=== PATIENT | female | born 1995 ===

== ENCOUNTER 2020-12-12 09:24 | Inpatient (IN) | payer OTHER ==
[~2020-12-12] VITALS: Ht 157.5 cm; Wt 88.5 kg
--- NOTE | 2020-12-13 18:24 | PR ---
[facility] [address] [facility] [place] [address] Signed PP Progress Notes Datetime Report Generated by CPN: 12/13/2020 18:24 SUBJECTIVE: [id number] Pain: Within Normal Limits Nausea/Vomiting: Denies Flatus: Yes Bowel Movement: No Vital Signs: [id number] Vital Signs: Reviewed; Within Normal Limits Cardiovascular: Normal Respiratory: Normal Abdomen/Uterus: Normal Lochia: Normal Vulva/Perineum: Not Done Breasts: Not Done CVA Tenderness: Normal Extremities: Normal Incision: Not Applicable Progress: Normal Exam Comments: Fundus firm U-2 nontender IMPRESSION/PLAN/PROCEDURES: [id number] Impression: Normal Progression Plan: Continue Present Management Progress Notes: Doing well. No concerns. Anticipate d/c home tomorrow. Signing Physician: Shabana Davis DO Copies: ~ *Electronically Signed* 12/13/20 1824 SHABANA DAVIS DO PATIENT NAME: MONI NINO PROGRESS NOTE DATE OF : [birth year] PHYSICIAN: SHABANA DAVIS DO RPT #: [id number] REPORT IS CONFIDENTIAL AND NOT TO BE RELEASED WITHOUT AUTHORIZATION
--- NOTE | 2020-12-14 07:12 | PR ---
[facility] [address] [facility] [place], [place] [address] Signed PP Progress Notes Datetime Report Generated by CPN: 12/14/2020 07:12 SUBJECTIVE: [id number] Pain: Within Normal Limits Nausea/Vomiting: Denies Flatus: Yes Bowel Movement: Yes Vital Signs: [id number] Vital Signs: Reviewed; Within Normal Limits Cardiovascular: Normal Respiratory: Normal Abdomen/Uterus: Normal Lochia: Normal Vulva/Perineum: Not Done Breasts: Not Done CVA Tenderness: Normal Extremities: Normal Incision: Not Applicable Progress: Normal Exam Comments: Fundus firm U-2 nontender. Baby IMPRESSION/PLAN/PROCEDURES: [id number] Impression: Normal Progression Plan: Discharge Progress Notes: Pt seen and examined. Doing well. Ambulating, voiding, and tolerating full diet. Pain and lochia minimal. well. No fevers/chills/other concerns. Desires d/c home today. Reviewed d/c instructions in detail. Unsure of plans for pp contraception. No questions or concerns. Hgb 12.5 Signing Physician: Shabana Davis DO Copies: ~ *Electronically Signed* 12/14/20711 SHABANA DAVIS DO PATIENT NAME: MONI NINO PROGRESS NOTE DATE OF : [birth year] PHYSICIAN: SHABANA DAVIS DO RPT #: [id number] REPORT IS CONFIDENTIAL AND NOT TO BE RELEASED WITHOUT AUTHORIZATION
--- NOTE | 2020-12-18 14:55 | PATH ---
[facility] [address] [place], [place] [address] Signed SPECIMEN(S): A PLACENTA SPECIMEN SOURCE: A. PLACENTA CLINICAL HISTORY: Mother's age: 23. OB history: G2, P1, A0. Gestational age: 38. score: 7/9. Rh negative. GBS negative. Specific issues of concern: History of COVID positive in June; negative at time of delivery. FINAL PATHOLOGIC DIAGNOSIS: Placenta, third trimester: - Cabral placenta, appropriate weight for stated gestational age of 38 weeks. - Umbilical cord: Three-vessel umbilical cord with no histopathologic abnormality. - membranes: Pigmented macrophages. - Placental disc: Chorionic villi with mature villous morphology. NAL:cml:C2NR MICROSCOPIC EXAMINATION: Histologic sections of all submitted blocks are examined by light microscopy. These findings, together with the gross examination, support the pathologic diagnosis. GROSS DESCRIPTION: The specimen, labeled "Allyson Hopkins," is received fresh and placed in formalin and consists of a cabral discoid placenta with the following parameters: Umbilical cord: Insertion paracentric, measurement 40.5 x 1.4 cm; trivascular. Cord coiling index (per 10 cm): Two, pale. Lesions: Not grossly identified. Membranes: Insertion site: Marginal, pink with areas of opacification, rupture site grossly unremarkable. Intact. Other: Not grossly identified. Chorionic Plate: Normal radiating vascular pattern, blue-purple and shiny. Lesions: Not grossly identified. Other: Not grossly identified. Maternal Surface: Normal cotyledons, intact. Lesions: Not grossly identified. Measurement: 22.4 x 19.2 x 2.6 cm. Weight (trimmed): 501 g Cut Surface: Maroon and spongy. Lesions: Focal areas of calcification. Basal plate fibrin 0.1 cm in thickness. Other Findings: Not grossly identified. PATIENT NAME: MONI HOPKINS PATHOLOGY DATE OF : [birth year] REPORT #: [id number] PHYSICIAN: ROSANA PATHOLOGY PCP: NO PRIMARY CARE PHYSICIAN REPORT IS CONFIDENTIAL AND NOT TO BE RELEASED WITHOUT AUTHORIZATION [facility] [address] [place], [place] [address] Signed Cassette Summary: (A1) membranes and umbilical cord (A2) areas of calcification (A3) placenta parenchyma (A4) placenta parenchyma. FB (under the direct supervision of a pathologist) The Gross Description was prepared using a voice recognition system. The report was reviewed for accuracy; however, sound-alike word errors, addition and/or deletions may occur. If there is any question about this report, please contact Client Services. PERFORMING LABORATORY: The technical component was performed by [facility] [address] (Operations Technician: Madelyn Hernandez MD; CLIA# [id number]). [facility] [address] [address] (CLIA# [id number]). Diagnostician: Jane Henriquez MD Pathologist Electronically Signed 12/18/2020 Copies: ~ PATIENT NAME: RUSH BECKERMONI PATHOLOGY DATE OF : [birth year] REPORT #: [id number] PHYSICIAN: ROSANA PATHOLOGY PCP: NO PRIMARY CARE PHYSICIAN REPORT IS CONFIDENTIAL AND NOT TO BE RELEASED WITHOUT AUTHORIZATION
== END 2020-12-14 11:30 | disposition home or self-care (01) | DRG 806 ==
LOC: FBCO 09:24 → FBC 09:41 → FBCO 02-28 10:05
PROVIDERS: ADMIT Obstetrics & Gynecology; ATTEND Obstetrics & Gynecology
PROC: 10E0XZZ Delivery of Products of Conception, External Approach (ICD-10-PCS; principal; 2020-12-12)
PROC: 10907ZC Drainage of Amniotic Fluid, Therapeutic from Products of Conception, Via Natural or Artificial Opening (ICD-10-PCS; 2020-12-12)
PROC: 3E0234Z Introduction of Serum, Toxoid and Vaccine into Muscle, Percutaneous Approach (ICD-10-PCS; 2020-12-13)
DX: O26.893 Other specified pregnancy related conditions, third trimester (principal); O99.354 Diseases of the nervous system complicating childbirth; Z37.0 Single live birth; G43.909 Migraine, unspecified, not intractable, without status migrainosus; Z67.21 Type B blood, Rh negative; Z3A.38 38 weeks gestation of pregnancy; Z86.16 Personal history of COVID-19; O9A.22 Injury, poisoning and certain other consequences of external causes complicating childbirth; S82.202D Unspecified fracture of shaft of left tibia, subsequent encounter for closed fracture with routine healing; S82.402D Unspecified fracture of shaft of left fibula, subsequent encounter for closed fracture with routine healing
CPT/HCPCS: 36415; 83030; 85027; 86850; 86870; 86900; 86901; 88307; A9270; C9803; J2590; J2790; J7121; U0003

== ENCOUNTER 2022-01-12 09:10 | Inpatient (IN) | payer OTHER ==
--- NOTE | 2022-01-12 10:23 | PR ---
[facility] [address] [facility] [place], [place] [address] Signed Progress Notes IP Datetime Report Generated by CPN: 01/12/2022 10:22 PROGRESS NOTES: [id number] Impression: Normal Progression of Labor Procedures: Sterile Vag Exam Plan: Continue Present Management; Antibiotic Therapy Informed Consent Obtain: Vaginal Delivery VITAL SIGNS: [id number] Vital Signs: Reviewed; Within Normal Limits EXAM: [id number] Dilatation: 6.0 Effacement: 90 Station: 0 Contractions: q 2-4 min MEMBRANES: [id number] Membranes Status: Bulging Comments: Pt seen and examined. Doing well but uncomfortable w/ contractions. Reviewed anticipated course of labor and delivery. All questions answered. Anticipate FETUS A: [id number] FHR Baseline: 140 Variability: Moderate 6-25bpm Accelerations: 15X15 Decelerations: Variable FHR Category: Category II Presentation: Vertex Comments on Fetus A: No evidence of metabolic acidosis FETUS B: [id number] Signing Physician: Shabana Davis DO Copies: ~ *Electronically Signed* 01/12/22 1022 SHABANA DAVIS DO PATIENT NAME: MONI NINO PROGRESS NOTE DATE OF : 97 PHYSICIAN: SHABANA DAVIS DO RPT #: [id number] REPORT IS CONFIDENTIAL AND NOT TO BE RELEASED WITHOUT AUTHORIZATION
--- NOTE | 2022-01-12 13:20 | PR ---
[facility] [address] [facility] [place], [place] [address] Signed Progress Notes IP Datetime Report Generated by CPN: 01/12/2022 13:20 PROGRESS NOTES: [id number] Impression: Normal Progression of Labor; Reassuring Heart Rate Procedures: Sterile Vag Exam Plan: Anticipate Vaginal Delivery Informed Consent Obtain: Vaginal Delivery Other Informed Consents: COVID in VITAL SIGNS: [id number] Vital Signs: Reviewed; Within Normal Limits EXAM: [id number] Dilatation: 9.0 Effacement: 90 Station: 0 Contractions: q 2-4 min MEMBRANES: [id number] Membranes Status: Bulging Comments: Pt seen and evaluated. +Covid (asymptomatic). Now complete. Second dose PCN in and pt now 10cm and uncomfortable. Plan AROM and anticipate soon. FETUS A: [id number] FHR Baseline: 140 Variability: Moderate 6-25bpm Accelerations: 15X15 Decelerations: Variable FHR Category: Category II Presentation: Vertex Comments on Fetus A: No evidence of metabolic acidosis FETUS B: [id number] Signing Physician: Shabana Davis DO Copies: ~ *Electronically Signed* 01/12/22 1320 SHABANA DAVIS DO PATIENT NAME: RUSH BECKERMONI PROGRESS NOTE DATE OF : [birth year] PHYSICIAN: SHABANA DAVIS #: [id number] REPORT IS CONFIDENTIAL AND NOT TO BE RELEASED WITHOUT AUTHORIZATION
--- NOTE | 2022-01-13 06:53 | PR ---
[facility] [address] [facility] [place], [place] [address] Signed PP Progress Notes Datetime Report Generated by CPN: 01/13/2022 06:53 SUBJECTIVE: [id number] Pain: Within Normal Limits Nausea/Vomiting: Denies Flatus: Yes Vital Signs: [id number] Vital Signs: Reviewed; Within Normal Limits EXAM: Ongoing Cardiovascular: Normal Respiratory: Normal Abdomen/Uterus: Normal Lochia: Normal Vulva/Perineum: Not Done Breasts: Not Done CVA Tenderness: Normal Extremities: Normal Incision: Not Applicable Progress: Normal Exam Comments: Fundus firm U-2 nontender IMPRESSION/PLAN/PROCEDURES: [id number] Impression: Normal Progression Plan: Discharge Progress Notes: Pt seen and examined. Doing well. Ambulating, voiding, and tolerating full diet. Pain and lochia minimal. well. No fever/chills. Asymptomatic covid +. B neg blood type; will received Rhogam prior to d/c if indicated. Desires Mirena IUD for pp contraception. Reviewed d/c instructions in detail. Signing Physician: Shabana Daivs DO Copies: ~ *Electronically Signed* 01/13/22 0653 SHABANA DAVIS DO PATIENT NAME: MONI NINO PROGRESS NOTE DATE OF : [birth year] PHYSICIAN: SHABANA DAVIS DO [facility] #: [id number] REPORT IS CONFIDENTIAL AND NOT TO BE RELEASED WITHOUT AUTHORIZATION
== END 2022-01-13 11:55 | disposition home or self-care (01) | DRG 805 ==
LOC: FBC 09:10
PROVIDERS: ADMIT Obstetrics & Gynecology; ATTEND Obstetrics & Gynecology
PROC: 10E0XZZ Delivery of Products of Conception, External Approach (ICD-10-PCS; principal; 2022-01-12)
PROC: 10907ZC Drainage of Amniotic Fluid, Therapeutic from Products of Conception, Via Natural or Artificial Opening (ICD-10-PCS; 2022-01-12)
PROC: 8E0ZXY6 Isolation (ICD-10-PCS; 2022-01-12)
DX: O42.02 Full-term premature rupture of membranes, onset of labor within 24 hours of rupture (principal); U07.1 COVID-19; Z37.0 Single live birth; O98.52 Other viral diseases complicating childbirth; O99.824 Streptococcus B carrier state complicating childbirth; O66.0 Obstructed labor due to shoulder dystocia; Z3A.38 38 weeks gestation of pregnancy; Z98.890 Other specified postprocedural states; Z86.69 Personal history of other diseases of the nervous system and sense organs; Z79.2 Long term (current) use of antibiotics; Z79.899 Other long term (current) drug therapy
CPT/HCPCS: 36415; 83030; 85027; 86850; 86900; 86901; 87502; A9270; C9803; J2540; J2590; J2790; J7121; U0003

== ENCOUNTER 2024-02-21 12:08 | Emergency (ER) | payer OTHER ==
[~2024-02-21] VITALS: Ht 152.4 cm; Wt 85.4 kg
[~2024-02-21 12:08] MED LIST: ADVIL MIGRAINE200 MG PO
[2024-02-21 12:59] LABS: BILIRUBIN, URINE NEGATIVE (negative); BLOOD/HGB, URINE NEGATIVE (Negative); KETONE, URINE NEGATIVE (Negative); LEUK ESTERASE, URINE NEGATIVE (negative); NITRITE, URINE NEGATIVE (negative)
[2024-02-21] MEDS ORDERED: KETOROLAC TROMETHAMINE 30 MG/ML VIAL IV ONE (13:15)
[2024-02-21] MEDS ORDERED: ondansetron HCL 4 MG/2 ML VIAL IV ONE (13:15)
[2024-02-21] MEDS ORDERED: SODIUM CHLORIDE 0.9% 1,000 ML IV ONE (13:15)
[2024-02-21 14:07] LABS: BASOPHILS 0.6 % (0-2); EOSINOPHILS 0.8 % (0-6); HEMATOCRIT 41.6 % (35.0-50.0); HEMOGLOBIN 13.8 g/dL (12.0-18.0); LYMPHOCYTES 26.7 % (24-44); MCH 28.3 (27-36); MCHC 33.2 g/dl (30-36); MONOCYTES 6.2 % (0-12); NEUTROPHILS 65.7 % (39-80); PLATELET COUNT 266 K/uL (140-440); RBC 4.89 M/ul (4.3-5.7); RDW 13.3 (10.5-15.0)
[2024-02-21 14:28] LABS: ALBUMIN 3.5 g/dL (3.4-5.0); ALBUMIN/GLOBULIN RATIO 1.03 (1.1-2.4); ALKALINE PHOSPHATASE 98 U/L (46-116); ALT (SGPT) 19 U/L (14-59); AST (SGOT) 14 U/L (15-37); BILIRUBIN, TOTAL 0.3 ng/dL (0.2-1.0); BUN/CREATININE RATIO 22.41 (6.0-28.6); CALCIUM 8.9 mg/dL (8.5-10.1); CARBON DIOXIDE 27 mmol/L (21-32); CHLORIDE 106 mmol/L (98-107); CREATININE, SERUM 0.58 mg/dL (0.55-1.02); GLOMERULAR FILTRATION RATE,EST 128 mL/min (>60); PROTEIN, TOTAL 6.9 g/dL (6.4-8.2); UREA NITROGEN 13 mg/dL (7-18)
[2024-02-21] MEDS ORDERED: KETOROLAC TROME10 MG PO (14:47)
[2024-02-21 14:50] VITALS: BP 108/79
--- NOTE | 2024-02-21 15:17 | EKG ---
[facility] [address] [facility] [place], [place] [address] Signed Normal sinus rhythm Normal ECG No previous ECGs available Confirmed by Adolfo Randall MD ([id number]) on 02/21/2024 3:17:17 PM Electronically Signed By: ADOLFO RANDALL MD 02/21/24 1517 PATIENT NAME: RUSH PIPERMONI Merino Electrocardiogram DATE OF : [birth year] PHYSICIAN: ADOLFO RANDALL MD REPORT #: [id number] REPORT IS CONFIDENTIAL AND NOT TO BE RELEASED WITHOUT AUTHORIZATION
== END 2024-02-21 14:50 | disposition home or self-care (01) ==
LOC: ED 12:08
PROVIDERS: Emergency Medicine
DX: R06.02 Shortness of breath (principal); R10.2 Pelvic and perineal pain
CPT/HCPCS: 36415; 71045; 76830; 76856; 80053; 81003; 83690; 84484; 84703; 85025; 93005; 93010; 96374; 96375; 99285-25; J1885; J2405; J7030